=== PATIENT | female | born 1960 | race Caucasian/White ===

== ENCOUNTER 2018-05-31 19:33 | Emergency (ER) | payer OTHER ==
[~2018-05-31] VITALS: Ht 167.6 cm; Wt 52.3 kg
[2018-05-31 19:39] VITALS: Ht 167.6 cm; Wt 52.3 kg
[2018-05-31] MEDS ORDERED: MAGNESIUM OXID500 MG (19:41)
[2018-05-31] MEDS ORDERED: CALCIUM 600 +1 EAC3 (19:41)
[2018-05-31] MEDS ORDERED: ULTRAM50 MG PO (20:54)
[2018-05-31 21:39] VITALS: BP 118/58
== END 2018-05-31 21:40 | disposition home or self-care (01) ==
LOC: D.ER 19:33
DX: S40.012A Contusion of left shoulder, initial encounter (principal); S90.02XA Contusion of left ankle, initial encounter; W10.9XXA Fall (on) (from) unspecified stairs and steps, initial encounter; Y93.89 Activity, other specified; Y92.89 Other specified places as the place of occurrence of the external cause